=== PATIENT | male | born 1975 | race Two or more races ===

== ENCOUNTER 2024-04-16 10:26 | Outpatient (REF) | payer MEDICAID, SELFPAY ==
--- NOTE | ~2024-04-16 | XR_ITS ---
EXAMINATION: XR CHEST CLINICAL INFORMATION: Nonspecific reaction without active TB COMPARISON: None available. TECHNIQUE: 2 views of the chest were obtained. FINDINGS: Heart size within normal limits. Bilateral hilar prominence. Right upper medial increased markings. Cavitary internal lucent areas are also seen. No consolidations or effusions. Mild degenerative changes. XR/XR chest 2V IMPRESSION: Abnormal chest with right medial upper lobe increased markings/atelectasis. Cavitary componentS not excluded. Comparison with old studies recommended. In their absence, consider chest CT.
== END 2024-04-16 10:27 | disposition home or self-care (01) ==
LOC: HO.HHCX 10:26
PROVIDERS: Visit Provider Internal Medicine Infectious Disease
DX: R76.12 Nonspecific reaction to cell mediated immunity measurement of gamma interferon antigen response without active tuberculosis (principal)
CPT/HCPCS: 71046

== ENCOUNTER 2025-07-04 15:16 | Outpatient (REF) | payer OTHER, MEDICAID, SELFPAY ==
--- OUTSIDE RECORDS SUMMARY | 2025-07-04 14:15 | XMS_ITS | Encounter Summary ---
Author Organization [employer] Address [address] [facility] [address] [place] [address] Care Team Providers Care Data Processing Consultant Name Role Phone Susie Martell Primary Care Provider [phone] Reason for Referral * Consultation (Routine) - Pending Review Specialty Diagnoses / Procedures Referred By Contac t Referred To Contact Physical Therapy Diagnoses Acute pain of left shoulder Cindy Goss NP [address] [place] [address] Phone: tel: fax: Referral ID Status Reason Start Date Expiration Date Visits Requested Visits Authorized [id number] Pending Review Specialty Services Required 07/04/2026 1 1 * Consultation (Routine) - Authorized Specialty Diagnoses / Procedures Referred By Contac t Referred To Contact Dermatology / Family Medicine Diagnoses Skin lesion Cindy Goss NP [address] [place] [address] Phone: tel: fax: Pelon England MD [address] [place] [id number] Phone: tel: fax: Referral ID Status Reason Start Date Expiration Date Visits Requested Visits Authorized [id number] Authorized Consult and Treat 07/04/2025 07/04/2026 1 1 * Imaging (Routine) - Pending Review Specialty Diagnoses / Procedures Referred By Contac t Referred To Contact Radiology Diagnoses Pain in both testicles Procedures US Scrotum Cindy Goss NP [address] [place] [address] Phone: tel: fax: Referral ID Status Reason Start Date Expiration Date V isits Requested Visits Authorized [id number] Pending Review 07/04/2025 07/04/2026 1 1 * Consultation (Routine) - Authorized Specialty Diagnoses / Procedures Referred By Controsangela t Referred To Contact Dental Side Piece Coverer / Dentistry Diagnoses Healthcare maintenance Cindy Goss NP [address] [place] [address] Phone: tel: fax: Referral ID Status Reason Start Date Expiration Date Visits Requested Visits Authorized [id number] Authorized Consult and Treat 07/04/2025 07/04/2026 1 1 * Consultation (Routine) - Pending Review Specialty Diagnoses / Procedures Referred By Karen mattson Referred To Contact Gastroenterology Diagnoses Screening for colon cancer Cindy Goss NP [address] [place] [address] Phone: tel: fax: Referral ID Status Reason Start Date Expiration Date Visits Requested Visits Authorized [id number] Pending Review Specialty Services Required 07/04/2026 1 1 Encounter Details Date Type Department Care Team (Late st Contact Info) Description 07/04/2025 2:15 PM EDT Office Visit [facility] MEDICINE [address] [place] [id number] Cindy Goss NP [address] [place] [address] Pain in both testicles (Primary Dx); Skin lesion; Healthcare maintenance; Lipid screening; Screening for colon cancer; Acute pain of left shoulder; Dietary counseling; Exercise counseling Social History Tobacco Use Types Packs/Day Years Used Date Smoking Tobacco: Never Passive Smoke Exposure: Never Smokeless Tobacco: Never Tobacco Cessation:Counseling Given: Not Answered Depression Answer Date Recorded Patient Health Questionnaire-9 Score 1 07/04/2025 Patient Health Questionnaire-9 Score 1 07/04/2025 Last PHQ-9: Questionnaire Data Not on file 1 Depression Answer Date Recorded Patient Health Questionnaire-2 Score 0 07/04/2025 Sex and Gender Information Value Date Recorded Sex Assigned at Male 04/11/2024 9:59 AM EDT Legal Sex Male 3:24 PM EDT Gender Identity Male 04/11/2024 9:59 AM EDT Sexual Orientation Don't know 04/11/2024 9: 59 AM EDT documented as of this encounter Last Filed Vital Signs Vital Sign Reading Time Taken Comments Blood Pressure 116/82 07/04/2025 2:19 PM EDT Pulse 89 07/04/2025 2:19 PM EDT Temperature 36.3 C (97.4 F) 07/04/2025 2:19 PM EDT Respiratory Rate 16 07/04/2025 2:19 PM EDT Oxygen Saturation 98% 07/04/2025 2:19 PM EDT Inhaled Oxygen Concentration - - Weight 113 kg (250 lb) 07/04/2025 2:19 PM EDT Height 186.5 cm (6' 1.43 ) 07/04/2025 2:19 PM ED T Body Mass Index 32.6 07/04/2025 2:19 PM EDT documented in this encounter Functional Status * Over the past 2 weeks, how often have you been bothered by any of the following problems? Question Answer Date of Assessment Author Patient Health Questionnaire -2 Score 0 07/04/2025 3:23 PM EDT Lakisha Stewart MA * Little interest or pleasure in doing things Answer Date of Assessment Author Not at all 07/04/2025 3:23 PM EDT Lakisha Diego MA * Feeling down, depressed, or hopeless Answer Date of Assessment Author Not at all 07/04/2025 3:23 PM EDT Lakisha Diego MA * Trouble falling or staying asleep, or sleeping too much Answer Date of Assessment Author Several days 07/04/2025 3:23 PM EDT Lakisha Diego MA * Feeling tired or having little energy Answer Date of Assessment Author Not at all 07/04/2025 3:23 PM EDT Lakisha Diego MA * Poor appetite or overeating Answer Date of Assessment Author Not at all 07/04/2025 3:23 PM EDT Lakisha Diego MA * Feeling bad about yourself - or that you are a failure or have let yourself or your family down Answer Date of Assessment Author Not at all 07/04/2025 3:23 PM EDT Lakisha Diego MA * Trouble concentrating on things, such as reading the newspaper or watching television Answer Date of Assessment Author Not at all 07/04/2025 3:23 PM EDT Lakisha Diego MA * Moving or speaking so slowly that other people could have noticed? Or the opposite - being so fidgety or restless that you have been moving around a lot more than usual. Answer Date of Assessment Author Not at all 07/04/2025 3:23 PM EDT Lakisha Diego MA * Thoughts that you would be better off or hurting yourself in some way Answer Date of Assessment Author Not at all 07/04/2025 3:23 PM EDT Lakisha Diego MA * Patient Health Questionnaire-9 Score Answer Date of Assessment Author 1 07/04/2025 3:23 PM EDT Lakisha Diego MA * How difficult have these problems made it for you to do your work, take care of things at home, or get along with other people? Answer Date of Assessment Author Not difficult at all 07/04/2025 3:23 PM EDT Lakisha Lawrence MA * Over the last 2 weeks, how often have you been bothered by any of the following problems? Question Answer Date of Assessment Author Feeling nervous, anxious, or on edge 0 07/04/2025 3:23 PM EDT Lakisha Stewart MA Not being able to stop or control worrying 0 07/04/2025 3:23 PM CARLOT Lakisha Stewart MA Worrying too much about different things 3 07/04/2025 3:23 PM EDT Lakisha Stewart MA Trouble relaxing 1 07/04/2025 3:23 PM EDT R eyes Catarino IRVIN Banuelos Being so restless that it is hard to sit still 0 07/04/2025 3:23 PM EDT Jose Lakisha Toribio MA Becoming easily annoyed or irritable 1 07/04/2025 3:23 PM EDT Lakisha Stewart MA Feeling afraid as if somethi ng awful might happen 1 07/04/2025 3:23 PM EDT Lakisha Stewart MA MAILE-7 Total Score 6 07/04/2025 3:23 PM EDT Lakisha Stewart MA documented as of this encounter Plan of Treatment Scheduled Orders Name Type Priority Associated Diagnoses Orde r Schedule CBC auto differential Lab Routine Healthcare maintenance Expected: 07/04/2025 (Approximate), Expires: 07/04/2026 Lipid Panel, Standard Lab Routine Lipid screening Expected: 07/04/2025 (Approximate), Expires: 07/04/2026 Comprehensive Metabolic Panel Lab Routine Healthcare maintenance Expected: 07/04/2025 (Approximate), Expires: 07/04/2026 US Scrotum Imaging Routine Pain in both testicles Expected: 07/04/2025, Expires: 07/04/2026 Urinalysis, Complete, with Reflex to Culture Lab Routine Pain in both testicles Expected: 07/04/2025 (Approximate), Expires: 07/04/2026 PSA,Total Lab Routine Pain in both testicles Expected: 07/04/2025, Expires: 07/04/2026 Scheduled Referrals Name Type Priority Associated Diagnoses Order Schedule Referral to Gastroenterology Outpatient Referral Routine Screening for colon cancer Expected: 07/04/2025 (Approximate), Expires: 07/04/2026 Referral to [facility] Dental Adult Outpatient Referral Routine Healthcare maintenance Expected: 07/04/2025 (Approximate), Expires: 07/04/2026 Referral to [facility] Derm Skin Outpatient Referral Routine Skin lesion Expected: 07/04/2025 (Approximate), Expires: 07/04/2026 Referral to Physical Therapy Outpatient Referral Routine Acute pain of left shoulder Expected: 07/04/2025 (Approximate), Expires: 07/04/2026 documented as of this encounter Visit Diagnoses Diagnosis Pain in both testicles- Primary Skin lesion Unspecified disorder of skin and subcutaneous tissue Healthcare maintenance Lipid screening Screening for lipoid disorders Screening for colon cancer Special screening for malignant neoplasms, colon Acute pain of left shoulder Dietary counseling Dietary surveillance and counseling Exercise counseling documented in this encounter Additional Health Concerns Assessment Noted Time PHQ-9 Depression Total Score: 1 07/04/20 25 3:23 PM EDT documented as of this encounter Care Teams Data Processing Consultant Relationship Specialty Start Date End Date Susie Martell ANP [address] [place] [id number] PCP - General Family Medicine 07/03/25 documented as of this encounter
--- OUTSIDE RECORDS SUMMARY | 2025-07-04 15:27 | XMS_ITS | Clinical Summary ---
Author Organization [employer] Address [address] [facility] [address] [place] [address] Care Team Providers Care Bit Sharpener Name Role Phone Susie Martell GRACY Primary Care Provider [phone] Allergies No known active allergies Encounters Date Type Department Care Team Description 07/04/2025 2:15 PM EDT Office Visit [facility] MEDICINE [address] [place] [address] Cindy Goss NP Pain in both testicles (Primary Dx); Skin lesion; Healthcare maintenance; Lipid screening; Screening for colon cancer; Acute pain of left shoulder; Dietary counseling; Exercise counseling 07/04/2025 Travel from Last 3 Months Immunizations Immunization Administration Dates Next Due Hep B, adult 10/15/2024,2024,04/11/2024 Influenza, seasonal, injecta ble, preservative free 2024 Pfizer Covid-19 Vaccine 12+ 06/18/2024 Tdap 04/11/2024 Social History Tobacco Use Types Packs/Day Years [...] Don't know 04/11/2024 9: 59 AM EDT Last Filed Vital Signs Vital Sign Reading [...] Mass Index 32.6 07/04/2025 2:19 PM EDT Plan of Treatment Health Maintenance Due Date Last Done Comments CT Colonography 1977 Colonoscopy 1977 Colorectal Cancer Screening 1977 Depression Screening 1977 FIT DNA/Cologuard 1977 FIT 1977 FOBT 1977 HIV Screening 1977 Lipid Panel 1977 SDOH Screening 1977 Sigmoidoscopy 1977 Disability Screening 1977 Alcohol/Substance Use Screening 1989 Family Planning (PISQ) 1992 Hepatitis C Screening 1995 Influenza Vaccine (#1) 2025 2024 Tobacco Screening 07/04/2026 07/04/2025 Zoster Vaccines (1 of 2) 2027 DTaP/Tdap/Td Vaccines (2 - T d or Tdap) 04/11/2034 04/11/2024 RSV Patients and Patients Aged 60 years or older (1 - 1-dose 75+ series) 2052 COVID-19 Vaccine Completed 06/18/2024 Hepatitis B Vaccines Completed 10/15/2024, 2024, 04/11/2024 HIB Vaccines Aged Out No longer eligi ble based on patient's age to complete this topic HPV Vaccines Aged Out No longer eligi ble based on patient's age to complete this topic Hepatitis A Vaccines Aged Out No long er eligible based on patient's age to complete this topic IPV Vaccines Aged Out No longer eligi ble based on patient's age to complete this topic Meningococcal B Vaccine Aged Out No l onger eligible based on patient's age to complete this topic Meningococcal Vaccine Aged Out No criss lor eligible based on patient's age to complete this topic Pneumococcal Vaccine: Pediatrics (0 to 5 Years) and At-Risk Patients (6 to 49) Years Aged Out No longer eligible b ased on patient's age to complete this topic RSV under 20 months Aged Out No longe r eligible based on patient's age to complete this topic Rotavirus Vaccines Aged Out No longer eligible based on patient's age to complete this topic [facility] Care Teams Bit Sharpener Relationship Specialty Start Date End Date Susie Martell ANP [address] [place] [phone] PCP - General Family Medicine 07/03/25
--- OUTSIDE RECORDS SUMMARY | 2025-07-04 15:28 | XMS_ITS | Encounter Summary ---
Author Organization [employer] Address [address] [facility] [address] [place] [address] Care Team Providers Care Urologist Physician Name Role Phone Susie Martell Primary Care Provider [phone] Encounter Details Date Type Department Care Team (Latest Contact Info) Description 07/04/2025 Travel Social History Tobacco Use Types Packs/Day Years Used Date Smoking Tobacco: Never Passive Smoke Exposure: Never Smokeless Tobacco: Never Depression Answer Date Recorded Patient Health Questionnaire-9 [...] AM EDT documented as of this encounter Functional Status * Over the [...] at all 07/04/2025 3:23 PM EDT Lakisha Gotti Ma, [place] * Trouble falling or staying asleep, [...] or control worrying 0 07/04/2025 3:23 PM EDT Lakisha Stewart MA Worrying too much about different things 3 07/04/2025 3:23 PM EDT Lakisha Stewart MA Trouble relaxing 1 07/04/2025 3:23 PM EDT Lakisha King MA Being so restless that it is hard to sit still 0 07/04/2025 3:23 PM EDT Lakisha Stewart MA Becoming easily annoyed or irritable 1 07/04/2025 3:23 PM EDT Lakisha Stewart MA Feeling afraid as if somethi ng awful might happen 1 07/04/2025 3:23 PM EDT Lakisha Stewart MA MAILE-7 Total Score 6 07/04/2025 3:23 PM EDT Lakisha Stewart MA documented as of this encounter Plan of Treatment Not on file documented as of this encounter Visit Diagnoses Not on filedocumented in this encounter Additional Health Concerns Assessment Noted Time PHQ-9 Depression Total Score: 1 07/04/20 3:23 PM EDT documented as of this encounter Care Teams Urologist Physician Relationship Specialty Start Date End Date Susie Martell ANP [address] [place] [address] PCP - General Family Medicine 07/03/25 documented as of this encounter
[2025-07-04 16:03] LABS: MANUAL DIFF FLAG NO
[2025-07-04 16:13] LABS: Hematocrit 45.4 % (42.0-52.0); Hemoglobin 14.6 g/dl (14.0-18.0); Imm Gran Abs Auto 0.01 X10*3/uL (0.00-0.03); Imm Gran Pct Auto 0.2 % (0.0-0.4); Lymphocytes Absolute Auto 2.6 X10*3/uL (1.2-4.9); Mean Corpuscular HGB Conc 32.2 g/dl (31.0-36.0); Mean Corpuscular Hemoglobin 29.6 pg (27.0-33.0); Mean Corpuscular Volume 91.9 fL (80.0-98.0); NRBC Abs Auto 0.000 X10*3/uL (0.0-0.012); NRBC Pct Auto 0.0 /100WBC (0.0-0.2); Platelet Count 226 X10*3/uL (160-400); Red Blood Count 4.94 X10*6/uL (4.60-5.80); White Blood Count 6.4 X10*3/uL (4.8-10.8)
[2025-07-04 16:19] LABS: Appearance Urine Clear; Glucose Urine UA Negative (Negative); PH 7.0 (5.0-9.0); Specific Gravity - Urine 1.025 (1.005-1.025); UMIC TRIGGER UACC YES
[2025-07-04 16:26] LABS: Alanine Aminotransferase 28 U/L (0-40); Albumin Level 4.3 g/dL (3.5-5.0); Alkaline Phosphatase 52 U/L (39-117); Anion Gap 9 (12-20); Aspartate Amino Transferase 35 U/L (5-37); Blood Urea Nitrogen 12 mg/dL (9-16); Calcium 8.9 mg/dL (8.4-10.2); Carbon Dioxide 31 mmol/L (22-29); Chloride 106 mmol/L (96-108); Cholesterol 192 mg/dL (<200); Estimated Glomerular Filt Rate > 60; HDL Cholesterol 31 mg/dL (>40); Potassium 4.6 mmol/L (3.3-5.1); Sodium 141 mmol/L (135-145); Total Protein 7.5 g/dL (6.5-8.0); Triglycerides 197 mg/dL (<150)
[2025-07-04 16:46] LABS: Prostate Specific Antigen 0.26 ng/mL (<0.05-4.0)
== END 2025-07-04 15:17 | disposition home or self-care (01) ==
LOC: HO.HHCL 15:16
DX: Z00.00 Encounter for general adult medical examination without abnormal findings (principal); N50.811 Right testicular pain; N50.812 Left testicular pain; Z13.220 Encounter for screening for lipoid disorders
CPT/HCPCS: 36415; 80053; 80061; 81001; 84153; 85025

== ENCOUNTER 2025-09-01 10:17 | Outpatient (REF) | payer OTHER, SELFPAY ==
--- NOTE | ~2025-09-01 | US_ITS ---
CLINICAL HISTORY: testicular pain US scrotum with Doppler Comparison: None provided Technique: Real time sonographic imaging, including color Doppler and spectral analysis, was performed by the para professional. Multiple kiosk sales representative static images were saved for review. Findings: Right testicle is normal in size and echotexture, 4.1 x 2.1 x 3.7 cm. No intratesticular lesion. Normal color flow with arterial spectral tracing. Left testicle is normal in size and echotexture, 4.5 x 2.0 x 4.0 cm. No intratesticular lesion. Normal color flow with arterial spectral tracing. Unremarkable epididymides. No hydrocele. Mild bilateral varicocele. Impression: Mild bilateral varicocele, otherwise unremarkable. This document has been electronically signed by: Marj Patterson MD on 09/02/2025 16:58:02
--- OUTSIDE RECORDS SUMMARY | 2025-09-01 11:38 | XMS_ITS | Clinical Summary ---
Author Organization [employer] Address [address] [facility] [address] [place] [address] Care Team Providers Care Administration Specialist Name Role Phone Susie Martell Primary Care Provider [phone] Allergies No known active allergies Medications naproxen (Naprosyn) 500 MG tabletIndicatio ns:Acute pain of left shoulder Take 1 tablet (500 mg) by mouth 2 times daily. 60 tablet 07/04/2025 Encounters Date Type Department Care Team Description 07/22/2025 Telephone [facility] [address] [place] [phone] Susie Martell ANP Referral 07/07/2025 Results Follow-Up [address] [address] Cindy Goss NP CBC auto differential, Lipid Panel, Standard, Comprehensive Metabolic Panel, Additional followed-up results: 2 07/04/2025 2:15 PM EDT Office Visit [address] [address] Cindy Goss NP Pain in both testicles (Primary Dx); Skin lesion; Healthcare maintenance; Lipid screening; Screening for colon cancer; Acute pain of left shoulder; Dietary counseling; Exercise counseling 07/04/2025 Travel from Last 3 Months Immunizations Immunization Administration Dates Next Due Hep B, adult 10/15/2024,2024,04/11/2024 Influenza, Injectable, MDCK, preservative free 08/13/2025 Influenza, seasonal, injecta ble, preservative free 2024 Pfizer Covid-19 Vaccine 12+ 06/18/2024 Tdap 04/11/2024 Social History Tobacco Use Types Packs/Day Years Used Date Smoking Tobacco: Never Passive Smoke Exposure: Never Smokeless Tobacco: Never Tobacco Cessation:Counseling Given: Not Answered Depression Answer Date Recorded Patient Health Questionnaire-9 Score 1 07/04/2025 Patient Health Questionnaire-9 Score 1 07/04/2025 Last PHQ-9: Questionnaire Data Not on file 1 Housing Stability Answer Date Recorded What is your housing situation today? I do not have housing (Staying with others, in a hotel, in a residential, living outside on the street, on a beach, in a car, or in a park 07/04/[address] you li ve. Do you have problems with any of the following? Pests such as bugs, ants, or mice 07/04/2025 Food Insecurity Answer Date Recorded Within the past 12 months, y ou worried that your food would run out before you got money to buy more: Sometimes True 2024 Within the past 12 months,th e food you bought just didn't last and you didn't have enough money to get more: Sometimes True 07/04/2025 Transportation Answer Date Recorded In the past 12 months, has l ack of transportation kept you from medical appts, meetings, work or from getting things needed for daily living? Yes, it has kept me from non-medical meetings, work, or getting things that I need 07/04/2025 Utilities Answer Date Recorded In the past 12 months, has t he electric, gas, oil or water company threatened to shut off services in your home? I am not sure 07/04/2025 Depression Answer Date Recorded Patient Health Questionnaire-2 Score 0 07/04/2025 Internet Access Answer Date Recorded Internet Access Q1 I am not sure 07/04/2025 Internet Access Q2 Not on file 07/04/2025 Sex and Gender Information Value Date [...] 1977 Colonoscopy 1977 Colorectal Cancer Screening 1977 FIT DNA/Cologuard 1977 FIT 1977 FOBT 1977 HIV Screening 1977 Sigmoidoscopy 1977 Family Planning (PISQ) 1992 Hepatitis C Screening 1995 COVID-19 Vaccine (2 - 2024-2 6 season) 2025 06/18/2024 Alcohol/Substance Use Screening 07/04/2026 07/04/2025 Depression Screening 07/04/2026 07/04/2025, 07/04/2025 Disability Screening 07/04/2026 07/04/2025 SDOH Screening 07/04/2026 07/04/2025 Tobacco Screening 07/04/2026 07/04/2025 Zoster Vaccines (1 of 2) 2027 Lipid Panel 07/04/2030 07/04/2025 DTaP/Tdap/Td Vaccines (2 - T d or Tdap) 04/11/2034 04/11/2024 RSV Patients and Patients Aged 60 years or older (1 - 1-dose 75+ series) 2052 Hepatitis B Vaccines Completed 10/15/2024, 2024, 04/11/2024 Influenza Vaccine Completed 08/13/2025, 2024 HIB Vaccines Aged Out No longer eligi [...] on patient's age to complete this topic Procedures Procedure Name Priority Date/Time Associated Diagnosis Comments PSA, TOTAL Routine 07/04/2025 3:25 PM EDT Pain in both testicles URINALYSIS, COMPLETE, WITH REFLEX TO CULTURE Routine 07/04/2025 3:25 PM EDT Pain in both testicles COMPREHENSIVE METABOLIC PANEL Routine 07/04/2025 3:25 PM EDT Healthcare maintenance LIPID PANEL, STANDARD Routine 07/04/2025 3:25 PM EDT Lipid screening CBC WITH AUTO DIFFERENTIAL Routine 07/04/2025 3:25 PM EDT Healthcare maintenance from Last 3 Months Results * (ABNORMAL) Urinalysis, Complete, with Reflex to Culture (07/04/2025 3:25 PM EDT) Color Urine Dark Yellow [facility] Appearance Urine Clear [facility] PH 7.0 5.0 - 9.0 [facility] Glucose Urine UA Negative Negative mg/dL [facility] Urine Blood Negative Negative [facility] Specific [place] - Urine 1.025 1.005 - 1.025 [facility] Urine Protein Trace Neg-Trace mg/dL [facility] Urine Ketones Trace Negative mg/dL [facility] Nitrite Urine Negative Negative [facility] Leukocyte Esterase Urine Trace(A) Negative [facility] RBC Urine 0-2 0 - 2 /HPF [facility] Urine WBC 0-5 0 - 5 /HPF [facility] Urine Squamous Epithelial Cell 0-2 0 - 2 /HPF [facility] Urine Bacteria None Seen None Seen [facility] Hyaline Casts, Urine 0-2 0 - 2 /LPF [facility] Urine 07/04/2025 3:25 PM EDT 07/04/2025 4:10 PM EDT Narrative [facility] - 07/04/2025 4:26 PM EDT Urine, Clean Catch Cindy Goss [facility] URINE ORDERABLES Final Resu lt [facility] [address] [place] [address] [phone] * (ABNORMAL) CBC auto differential (07/04/2025 3:25 PM EDT) White Blood Count 6.4 4.8 - 10.8 X10*3/uL [facility] Red Blood Count 4.94 4.60 - 5.80 X10*6/uL [facility] Hemoglobin 14.6 14.0 - 18.0 g/dl [facility] Hematocrit 45.4 42.0 - 52.0 % [facility] Mean Corpuscular Volume 91.9 80.0 - 98.0 fL [facility] Mean Corpuscular Hemoglobin 29.6 27.0 - 33.0 pg [facility] Mean Corpuscular HGB Conc 32.2 31.0 - 36.0 g/dl [facility] Red Cell Distribution Width 13.3 11.0 - 16.0 % [facility] Platelet Count 226 160 - 400 X10*3/uL [facility] Mean Platelet Volume 10.5 9.4 - 12.4 fL [facility] Neutrophils Percent Auto 44.2(L) 45 - 73 % [facility] Imm Gran Pct Auto 0.2 0.0 - 0.4 % [facility] Lymphocytes Percent Auto 39.7 20 - 40 % [facility] Monocytes Percent Auto 7.3 2 - 11 % [facility] Eosinophils Percent Auto 7.8(H) 0 - 4 % [facility] Basophils Percent Auto 0.8 0 - 2 % [facility] NRBC Pct Auto 0.0 0.0 - 0.2 /100WBC [facility] Neutrophils Absolute Auto 2.9 2.0 - 8.3 x10*3/uL [facility] Imm Gran Abs Auto 0.01 0.00 - 0.03 X10*3/uL [facility] Lymphocytes Absolute Auto 2.6 1.2 - 4.9 X10*3/uL [facility] Monocytes Absolute Auto 0.5 0.1 - 1.2 X10*3/uL [facility] Eosinophils Absolute Auto 0.5(H) 0.0 - 0.4 X10*3/uL [facility] Basophils Absolute Auto 0.1 0.0 - 0.2 X10*3/uL [facility] NRBC Abs Auto 0.000 0.0 - 0.012 X10*3/uL [facility] Blood Venous blood specimen / Unknown 07/04/2025 3:25 PM EDT 07/04/2025 4:00 PM EDT Cindy Goss NP LAB BLOOD ORDERABLES Final Resu lt Performing Organization Address City/[facility]/ZIP Co de Phone Number [facility] [address] [place] [phone] * PSA,Total (07/04/2025 3:25 PM EDT) Prostate Specific Antigen 0.26 <0.05 - 4.0 ng/mL [facility] Comment:PSA methodology: Abb jay Alinicholasty i ChemiluminescentMicroparticle Immunoassay (CMIA) Blood Venous blood specimen / Unknown 07/04/2025 3:25 PM EDT 07/04/2025 4:00 PM EDT Cindy Goss NP LAB BLOOD ORDERABLES Final Resu lt [facility] [address] [place] [phone] * (ABNORMAL) Lipid Panel, Standard (07/04/2025 3:25 PM EDT) Triglycerides 197(H) <150 mg/dL [facility] Comment:Desirable Triglyceri de: less than 150 mg/dLBorderline High Triglyceride 150-199 mg/dLHigh Triglyceride: 200-499 mg/dLVery High Triglyceride: greater than or equal to 5OO mg/dL Cholesterol 192 <200 mg/dL [facility] Comment:Desirable Cholestero l: less than 200 mg/dLBorderline High Cholesterol: 200-239 mg/dLHigh Cholesterol: greater than 239 mg/dL LDL Cholesterol Calculated 122(H) <100 mg/dL [facility] Comment:Desirable LDL: less than 100 mg/dLNear Optimal/Above Optimal LDL: 110- 129 mg/dLBorderline High LDL: 130-159 mg/dLHigh LDL: 160-189 mg/dLVery High LDL: greater than or equal to 190 mg/dL HDL Cholesterol 31(L) >40 mg/dL [facility] Comment:Desirable HDL: great er than 40 mg/dL Note: This HDL assay may give artificially low results in patients with liver disease. Blood Venous blood specimen / Unknown 07/04/2025 3:25 PM EDT 07/04/2025 4:00 PM EDT us Cindy Goss NP LAB BLOOD ORDERABLES Final Resu lt [facility] [address] [place] [phone] * (ABNORMAL) Comprehensive Metabolic Panel (07/04/2025 3:25 PM EDT) Sodium 141 135 - 145 mmol/L [facility] Potassium 4.6 3.3 - 5.1 mmol/L [facility] Chloride 106 96 - 108 mmol/L [facility] Carbon Dioxide 31(H) 22 - 29 mmol/L [facility] Anion Gap 9(L) 12 - 20 [facility] Urea Nitrogen (BUN) 12 9 - 16 mg/dL [facility] Creatinine, Serum 1.18 0.5 - 1.4 mg/dL [facility] Estimated Glomerular Filt Rate >60 [facility] Comment:Chronic Kidney Disea se: Estimated GFR < 60 mL/min/[id number] Kidney Disease: Estimated GFR < 15 mL/min/1.73m2 Glucose 94 60 - 115 mg/dL [facility] Calcium 8.9 8.4 - 10.2 mg/dL [facility] Bilirubin, Total 0.5 0.0 - 1.0 mg/dL [facility] Aspartate Amino Transferase 35 5 - 37 U/L [facility] Alanine Aminotransferase 28 0 - 40 U/L [facility] Total Protein 7.5 6.5 - 8.0 g/dL [facility] Albumin Level 4.3 3.5 - 5.0 g/dL [facility] Alkaline Phosphatase 52 39 - 117 U/L [facility] Blood Venous blood specimen / Unknown 07/04/2025 3:25 PM EDT 07/04/2025 4:00 PM EDT us Cindy Goss NP LAB BLOOD ORDERABLES Final Resu lt [facility] [address] [place] [phone] from Last 3 Months Insurance [employer] HSN [facility] Care Teams Administration Specialist Relationship Specialty Start Date End Date Susie Martell ANP [address] [place] [address] PCP - General Family Medicine 07/03/25
--- OUTSIDE RECORDS SUMMARY | 2025-09-01 11:38 | XMS_ITS | Encounter Summary ---
Author Organization [employer] Address [address] [facility] [address]t [place] [address] Care Team Providers Care Flight Dynamicist Name Role Phone Susie Martell Primary Care Provider [phone] Reason for Visit * Reason Onset Date Comments Referral 07/22/2025 Encounter Details Date Type Department Care Team ([facility] st Contact Info) Description 07/22/2025 Telephone [facility] [address] [place], [place] [phone] Susie Martell ANP [address] [place] [address] Referral Social History Tobacco Use Types Packs/Day Years [...] with others, in a hotel, in a nursing home, living outside on the street, on a [...] AM EDT documented as of this encounter Miscellaneous Notes * Telephone Encounter - Flavio Cox - 07/22/2025 10:26 AM EST Tc from pt Serge with [facility] requesting a new updated referral for physical therapy due to the pt having to cancel apt. Referral with different date. Any questions contact [phone] documented in this encounter Plan of Treatment Not on file documented as of this encounter Visit Diagnoses Not on filedocumented in this encounter Additional Health Concerns Assessment Noted Time PHQ-9 Depression Total Score: 1 07/04/20 25 3:23 PM EDT documented as of this encounter Care Teams Flight Dynamicist Relationship Specialty Start Date End Date Susie Martell ANP [address] [place] [phone] PCP - General Family Medicine 07/03/25 documented as of this encounter
== END 2025-09-01 10:18 ==
LOC: HO.HMGCX 10:17
DX: N50.811 Right testicular pain (principal); N50.812 Left testicular pain
CPT/HCPCS: 76870

== ENCOUNTER → 2025-09-01 10:20 | Outpatient (BNV) | payer OTHER, SELFPAY | PROVIDERS: Visit Provider Radiology Diagnostic Radiology | DX: I86.1 Scrotal varices (principal) | CPT/HCPCS: 76870 ==